=== PATIENT | male | born 1940 | race Caucasian/White ===

== ENCOUNTER 2024-12-01 11:31 | Inpatient (IN) ==
[2024-12-01 12:46] LABS: Basophils # (Auto) 0.02 K/mcL (0.00-0.30); Basophils % (Auto) 0.4 % (0.0-2.0); Eosinophils # (Auto) 0.14 K/mcL (0.00-0.70); Eosinophils % (Auto) 2.5 % (0.0-7.0); Hematocrit 34.1 % (40.1-51.0); Hemoglobin 11.1 g/dL (13.7-17.5); Lymphocytes % (Auto) 8.8 % (15.5-49.0); Mean Cell Volume 94.2 fL (80.0-100.0); Mean Corpuscular HGB Conc 32.6 g/dL (31.0-36.0); Mean Platelet Volume 9.2 fL (8.8-12.5); Monocytes # (Auto) 0.93 K/mcL (0.10-0.90); Monocytes % (Auto) 16.3 % (1.0-12.0); Neutrophils % (Auto) 71.6 % (38.0-78.0); Platelet Count 214 K/mcL (140-440); RBC 3.62 M/mcL (4.63-6.08); Red Cell Distribution Width 12.7 % (11.5-14.5); WBC 5.7 K/mcL (4.5-11.0)
[2024-12-01 12:51] LABS: ALT/SGPT 17 U/L (<40); AST/SGOT 21 U/L (<40); Albumin 3.2 gm/dL (3.2-5.2); Albumin/Globulin Ratio 1.1 (1.0-2.3); Alkaline Phosphatase 85 U/L (39-117); Bilirubin,Total 0.4 mg/dL (0.1-1.0); Blood Urea Nitrogen 19 mg/dL (8-23); Calcium 8.8 mg/dL (8.6-10.4); Carbon Dioxide 28 mmol/L (22-30); Chloride 97 mmol/L (96-108); Globulin 2.8 gm/dL (2.2-3.7); Glomerular Filtration Rate 77; Glucose 110 mg/dL (70-105); Potassium 4.2 mmol/L (3.3-5.1); Sodium 135 mmol/L (133-145)
[2024-12-01 13:30] LABS: Appearance,Urine Clear (Clear); Bilirubin,Urine Negative (Negative); Color,Urine Yellow; Glucose,Urine (UA) Negative (Negative); Ketones,Urine Negative (Negative); Leukocyte Esterase,Urine Negative /uL (Negative); Nitrate,Urine Negative (Negative); PH,Urine 6.5 (5.0-9.0); Protein,Urine Negative (Negative); Urine Blood Negative ery/mcL (Negative); Urobilinogen,Urine Normal
[2024-12-01] MEDS ORDERED: MAGNESIUM SULFATE 2 GM/50 ML BAG IV PRN (16:07)
[2024-12-01] MEDS ORDERED: IPRATROPIUM/ALBUTEROL 3 ML AMPUL.NEB NEB PRN (16:07)
[2024-12-01] MEDS ORDERED: METOCLOPRAMIDE 10 MG/2 ML VIAL IV PRN (16:07)
[2024-12-01] MEDS ORDERED: POTASSIUM CHLORIDE 40 MEQ in DEXTROSE 5% IN WATER 500 ML IV PRN (16:07)
[2024-12-01] MEDS ORDERED: METOPROLOL TARTRATE 5 MG/5 ML VIAL IV PRN (16:07)
[2024-12-01] MEDS ORDERED: SENNOSIDES 1 TABLET PO PRN (16:07)
[2024-12-01] MEDS ORDERED: ONDANSETRON 4 MG/2 ML VIAL IV PRN (16:07)
[2024-12-01] MEDS ORDERED: POTASSIUM CHLORIDE 20 MEQ TABLET PO PRN ×2 (16:07)
[2024-12-01] MEDS: 0.9 % SODIUM CHLORIDE 1,000 ML IV SCH (16:32)
[2024-12-01] MEDS: LIDOCAINE 4% TOP PATCH TOPICAL SCH (16:51)
[2024-12-01] MEDS: amLODIPine 5 MG TABLET PO SCH (19:47)
[2024-12-01] MEDS: AMIODARONE HCL 200 MG TABLET PO SCH (19:47)
[2024-12-01] MEDS: PREGABALIN 100 MG CAPSULE PO SCH (20:11)
[2024-12-01] MEDS: TAMSULOSIN 0.4 MG CAPSULE PO SCH (20:11)
[2024-12-01] MEDS: DOCUSATE SODIUM 100 MG CAPSULE PO SCH (20:11)
[2024-12-01] MEDS: 0.9 % SODIUM CHLORIDE 10 ML SYRINGE IV SCH (20:12)
[2024-12-01] MEDS: LATANOPROST OPHTH DROPS 2.5ML BOTTLE OU SCH (20:12)
[2024-12-01] MEDS: LOSARTAN 50 MG TABLET PO SCH (20:12)
[2024-12-01] MEDS: METOPROLOL SUCCINATE 25 MG TAB.XL.24H PO SCH (20:12)
[2024-12-01] MEDS: HYDROmorphone 2 MG TABLET PO PRN (21:42)
[2024-12-01] MEDS: KETOROLAC 15 MG/ML VIAL IV PRN (22:56)
[2024-12-02] MEDS: LORazepam 1 MG TABLET PO PRN (00:06)
[2024-12-02] MEDS: ACETAMINOPHEN 325 MG TABLET PO SCH (02:50)
[2024-12-02 06:35] LABS: ALT/SGPT 16 U/L (<40); AST/SGOT 20 U/L (<40); Albumin 3.1 gm/dL (3.2-5.2); Albumin/Globulin Ratio 1.1 (1.0-2.3); Alkaline Phosphatase 85 U/L (39-117); Bilirubin,Direct < 0.2 mg/dL (0-0.3); Bilirubin,Total 0.3 mg/dL (0.1-1.0); Blood Urea Nitrogen 15 mg/dL (8-23); Calcium 8.5 mg/dL (8.6-10.4); Carbon Dioxide 24 mmol/L (22-30); Chloride 98 mmol/L (96-108); Globulin 2.7 gm/dL (2.2-3.7); Glomerular Filtration Rate 80; Glucose 98 mg/dL (70-105); Lactate Dehydrogenase 214 U/L (135-225); Phosphorous 2.9 mg/dL (2.5-4.5); Potassium 3.8 mmol/L (3.3-5.1); Sodium 135 mmol/L (133-145); Triglycerides 69 mg/dL (<150); Uric Acid 2.9 mg/dL (2.5-8.0)
[2024-12-02] MEDS ORDERED: diphenhydrAMINE 25 MG CAPSULE PO PRN (08:20)
[2024-12-02] MEDS: ENOXAPARIN 40 MG/0.4 ML SYRINGE SQ SCH (09:28)
[2024-12-02] MEDS: fentaNYL 25 MCG PATCH TOPICAL SCH (09:33)
[2024-12-02] MEDS ORDERED: MELATONIN 3 MG TABLET PO SCH (19:00)
[2024-12-02] MEDS: MELATONIN 3 MG TABLET PO SCH (19:57)
[2024-12-02] MEDS: SENNOSIDES 1 TABLET PO SCH (20:05)
[2024-12-03] MEDS: METHOCARBAMOL 1,000 MG/10 ML VIAL IV ONE (09:18)
[2024-12-03] MEDS: LEVOTHYROXINE 50 MCG TABLET PO SCH (09:54)
[2024-12-03] MEDS: POLYETHYLENE GLYCOL 3350 17 GM PACKET PO PRN (18:12)
[2024-12-03] MEDS: diphenhydrAMINE 25 MG CAPSULE PO PRN (20:47)
[2024-12-03] MEDS: METHOCARBAMOL 1,000 MG/10 ML VIAL IV PRN (20:48)
[2024-12-04] MEDS: LEVOTHYROXINE 25 MCG TABLET PO SCH (08:19)
[2024-12-05] MEDS ORDERED: LEVOTHYROXINE 50 MCG TABLET PO SCH (07:30)
== END 2024-12-04 11:11 | disposition hospice, inpatient (51) | DRG 948 ==
LOC: ED 11:31 → MEDSUR 16:00
PROVIDERS: ADMIT Internal Medicine; ATTEND Internal Medicine